=== PATIENT | male | born 1995 | race Caucasian/White ===

== ENCOUNTER 2017-11-04 00:25 | Emergency (ER) | payer MEDICAID ==
[2017-11-04] MEDS: LIDOCAINE 1% (MDV) 10 ML INJ INJ (01:15)
[2017-11-04] MEDS: DIPHTH/TET/ACEL PERTUSS (ADULT) 0.5 ML VIAL IM (01:24)
== END 2017-11-04 01:30 | disposition home or self-care (01) ==
LOC: FTE 00:25
DX: S61.212A Laceration without foreign body of right middle finger without damage to nail, initial encounter (principal); W26.0XXA Contact with knife, initial encounter; Y92.000 Kitchen of unspecified non-institutional (private) residence as the place of occurrence of the external cause
CPT/HCPCS: 12001; 90471; 90715; 99283-25